=== PATIENT | male | born 1940 | race Native Hawaiian/Other Pacific Islander ===

== ENCOUNTER 2017-08-12 01:31 | Outpatient (CLI) | payer OTHER, BC ==
[~2017-08-12 01:31] MED LIST: ASPIRIN LOW STR81 MG OR; CARBTAB6 PO; COZAAR100 MG PO; EZET10TA13 OR; METO50TA63 PO; NEXIUM40 M1 PO; RANO500T PO; ROPINIROLE0.5 MG OR; TEST200I2 IM; ULTRAM ER200 MG PO; UNITH DIRECT175 MCG OR
== END 2017-08-12 01:48 | disposition short-term general hospital (02) ==
LOC: AMB 01:31
DX: R07.89 Other chest pain (principal); R53.1 Weakness
CPT/HCPCS: A0425; A0427

== ENCOUNTER 2018-01-25 16:56 | Outpatient (CLI) | payer OTHER, BC | END 2018-01-25 22:58 | disposition home or self-care (01) | LOC: LAB 16:56 | DX: L02.811 Cutaneous abscess of head [any part, except face] (principal) | CPT/HCPCS: 87070; 87077; 87186; 87205 ==

== ENCOUNTER 2018-01-27 16:07 | Outpatient (CLI) | payer OTHER, BC | END 2018-01-27 16:28 | disposition short-term general hospital (02) | LOC: AMB 16:07 | DX: R55 Syncope and collapse (principal) | CPT/HCPCS: A0425; A0427 ==

== ENCOUNTER 2018-02-15 08:10 | Outpatient (CLI) | payer OTHER, BC | END 2018-02-15 19:58 | disposition home or self-care (01) | LOC: NM 08:10 | DX: S93.621A Sprain of tarsometatarsal ligament of right foot, initial encounter (principal); E13.621 Other specified diabetes mellitus with foot ulcer | CPT/HCPCS: A9561 ==

== ENCOUNTER 2018-03-06 05:29 | Outpatient (CLI) | payer OTHER, BC | END 2018-03-06 05:48 | disposition short-term general hospital (02) | LOC: AMB 05:29 | DX: R41.82 Altered mental status, unspecified (principal); R10.84 Generalized abdominal pain; R11.0 Nausea | CPT/HCPCS: A0425; A0427 ==

== ENCOUNTER 2018-05-23 11:25 | Outpatient (CLI) | payer OTHER, BC ==
[2018-05-23 12:39] LABS: POTASSIUM 4.1 mmol/L (3.6-5.2)
== END 2018-05-23 20:31 | disposition home or self-care (01) ==
LOC: LABW 11:25
PROVIDERS: Orthopaedic Surgery
DX: M86.671 Other chronic osteomyelitis, right ankle and foot (principal)
CPT/HCPCS: 36415; 80048

== ENCOUNTER 2018-11-09 14:30 | Outpatient (CLI) | payer OTHER, BC | END 2018-11-09 22:15 | disposition home or self-care (01) | LOC: CT 14:30 | DX: M54.16 Radiculopathy, lumbar region (principal); M96.1 Postlaminectomy syndrome, not elsewhere classified; M54.5 Low back pain; M48.061 Spinal stenosis, lumbar region without neurogenic claudication ==

== ENCOUNTER 2019-03-28 07:51 | Day surgery (SDC) | payer OTHER, BC ==
[2019-03-28 08:39] LABS: PLATELET COUNT 217 K/uL (142-355)
[2019-03-28 08:51] LABS: POTASSIUM 4.2 mmol/L (3.6-5.2)
== END 2019-03-28 14:10 | disposition home or self-care (01) ==
LOC: OR 07:51
PROVIDERS: Student in an Organized Health Care Education/Training Program
PROC: 0JH63XZ Insertion of Tunneled Vascular Access Device into Chest Subcutaneous Tissue and Fascia, Percutaneous Approach (ICD-10-PCS; principal; 2019-03-28)
DX: I87.8 Other specified disorders of veins (principal); C76.2 Malignant neoplasm of abdomen; C79.89 Secondary malignant neoplasm of other specified sites
CPT/HCPCS: 80053; 85027; C1788; J0690; J1644; J2001; J2704; J3010; J3490

== ENCOUNTER 2019-07-24 22:03 | Outpatient (CLI) | payer OTHER, BC ==
[~2019-07-24 22:03] MED LIST changes: -EZET10TA13 OR; +EZET10TA13 PO; -UNITH DIRECT175 MCG OR; +UNITH DIRECT175 MCG PO
[2019-07-25] MEDS ORDERED: GABA300C2 PO ×3 (09:49→12:06)
[2019-07-25] MEDS ORDERED: SINEMET PO ×3 (11:56→12:03)
[2019-07-25] MEDS ORDERED: LEXAPRO10 MG PO (11:58)
[2019-07-25] MEDS ORDERED: MULT VITAMI1 PO (11:59)
[2019-07-25] MEDS ORDERED: NATURAL ZINC50 MG PO (12:04)
[2019-07-25] MEDS ORDERED: VITAMIN D35000 UNI1 PO (12:07)
[2019-07-25] MEDS ORDERED: TERAZOSIN2 MG PO (12:11)
[2019-07-25] MEDS ORDERED: ULTRACET1 TAB PO (12:14)
[2019-07-25] MEDS ORDERED: COLACE CLEAR50 MG PO (12:17)
[2019-07-25] MEDS ORDERED: PROMETHAZINE12.5 M3 PO (15:02)
[2019-07-25] MEDS ORDERED: METOCLOPRAM10 MG PO (15:03)
[2019-07-25] MEDS ORDERED: ZOFRAN8 MG PO (15:05)
[2019-07-25] MEDS ORDERED: HYDR10TA47A PO (20:20)
[2019-07-25] MEDS ORDERED: MIRALAX3350 N1 PO (20:20)
[2019-07-25] MEDS ORDERED: FIORICET PO (20:21)
[2019-07-25] MEDS ORDERED: COMPAZINE PO (20:34)
== END 2019-07-24 22:10 | disposition short-term general hospital (02) ==
LOC: AMB 22:03
DX: R10.84 Generalized abdominal pain (principal); Z85.028 Personal history of other malignant neoplasm of stomach
CPT/HCPCS: A0425; A0429

== ENCOUNTER 2019-07-24 22:14 | Observation (INO) | payer OTHER, BC ==
[~2019-07-24] VITALS: Ht 180.3 cm; Wt 77.6 kg
[2019-07-24 22:34] VITALS: BP 143/54; TEMP 98.7
[2019-07-24 23:02] LABS: PLATELET COUNT 179 K/uL (142-355)
[2019-07-24 23:42] LABS: POTASSIUM 4.8 mmol/L (3.6-5.2); SODIUM 138 mmol/L (136-145)
[2019-07-24 23:45] VITALS: BP 170/79
[2019-07-25 01:56] VITALS: BP 184/89; TEMP 97.5; Ht 180.3 cm; Wt 77.6 kg
[2019-07-25 04:00] VITALS: BP 184/89; TEMP 97.5
[2019-07-25 08:00] VITALS: BP 168/84; TEMP 97.8
[2019-07-25] MEDS ORDERED: GABA300C2 PO ×3 (09:49→12:06)
[2019-07-25] MEDS ORDERED: SINEMET PO ×3 (11:56→12:03)
[2019-07-25] MEDS ORDERED: LEXAPRO10 MG PO (11:58)
[2019-07-25] MEDS ORDERED: MULT VITAMI1 PO (11:59)
[2019-07-25 12:00] VITALS: BP 138/76; TEMP 98.7
[2019-07-25] MEDS ORDERED: NATURAL ZINC50 MG PO (12:04)
[2019-07-25] MEDS ORDERED: VITAMIN D35000 UNI1 PO (12:07)
[2019-07-25] MEDS ORDERED: TERAZOSIN2 MG PO (12:11)
[2019-07-25] MEDS ORDERED: ULTRACET1 TAB PO (12:14)
[2019-07-25] MEDS ORDERED: COLACE CLEAR50 MG PO (12:17)
[2019-07-25] MEDS ORDERED: PROMETHAZINE12.5 M3 PO (15:02)
[2019-07-25] MEDS ORDERED: METOCLOPRAM10 MG PO (15:03)
[2019-07-25] MEDS ORDERED: ZOFRAN8 MG PO (15:05)
[2019-07-25 16:00] VITALS: BP 154/82; TEMP 97.6
[2019-07-25 20:00] VITALS: BP 158/77; TEMP 98.3
[2019-07-25] MEDS ORDERED: HYDR10TA47A PO (20:20)
[2019-07-25] MEDS ORDERED: MIRALAX3350 N1 PO (20:20)
[2019-07-25] MEDS ORDERED: FIORICET PO (20:21)
[2019-07-25] MEDS ORDERED: COMPAZINE PO (20:34)
[2019-07-26] VITALS: BP 152/70; TEMP 98.6
[2019-07-26 04:00] VITALS: BP 140/64; TEMP 98.3
[2019-07-26 05:47] LABS: POTASSIUM 4.5 mmol/L (3.6-5.2)
[2019-07-26 08:00] VITALS: BP 166/86; TEMP 98.1
== END 2019-07-26 09:25 | disposition home or self-care (01) ==
LOC: ED 22:14 → MED/SURG 07-25 00:35
PROVIDERS: Emergency Medicine; ADMIT Internal Medicine
DX: K59.09 Other constipation (principal); E03.8 Other specified hypothyroidism; I10 Essential (primary) hypertension; K21.9 Gastro-esophageal reflux disease without esophagitis; G20 Parkinson's disease; F32.89 Other specified depressive episodes; C18.9 Malignant neoplasm of colon, unspecified; C78.6 Secondary malignant neoplasm of retroperitoneum and peritoneum
CPT/HCPCS: 80048; 80053; 81000; 82150; 83690; 84484; 85027; 96360; 96361; 96365; 96366; 96375; 99220; 99284; G0378; J1885; J2405

== ENCOUNTER 2019-12-08 11:40 | Inpatient (IN) | payer OTHER, BC ==
[~2019-12-08 11:40] MED LIST changes: +COLACE CLEAR50 MG PO; +COMPAZINE PO; +FIORICET PO; +GABA300C2 PO; +HYDR10TA47A PO; +LEXAPRO10 MG PO; +METOCLOPRAM10 MG PO; +MIRALAX3350 N1 PO; +MULT VITAMI1 PO; +NATURAL ZINC50 MG PO; +PROMETHAZINE12.5 M3 PO; +SINEMET PO; +TERAZOSIN2 MG PO; +ULTRACET1 TAB PO; +VITAMIN D35000 UNI1 PO; +ZOFRAN8 MG PO
== END 2019-12-31 14:12 | disposition still patient (30) ==
LOC: PAVC 11:40
PROVIDERS: ADMIT Internal Medicine
DX: G23.1 Progressive supranuclear ophthalmoplegia [Steele-Richardson-Olszewski] (principal); G20 Parkinson's disease; M25.551 Pain in right hip; M62.81 Muscle weakness (generalized); R27.8 Other lack of coordination; I25.10 Atherosclerotic heart disease of native coronary artery without angina pectoris; C25.9 Malignant neoplasm of pancreas, unspecified; G63 Polyneuropathy in diseases classified elsewhere; Z74.1 Need for assistance with personal care; R26.2 Difficulty in walking, not elsewhere classified

== ENCOUNTER 2019-12-31 14:45 | Inpatient (IN) | payer OTHER, BC | END 2020-01-10 13:45 | disposition home or self-care (01) | LOC: PAVC 14:45 | PROVIDERS: ADMIT Internal Medicine | DX: G23.1 Progressive supranuclear ophthalmoplegia [Steele-Richardson-Olszewski] (principal); G20 Parkinson's disease; M25.551 Pain in right hip; M62.81 Muscle weakness (generalized); R27.8 Other lack of coordination; I25.10 Atherosclerotic heart disease of native coronary artery without angina pectoris; C25.9 Malignant neoplasm of pancreas, unspecified; G63 Polyneuropathy in diseases classified elsewhere; Z74.1 Need for assistance with personal care; R26.2 Difficulty in walking, not elsewhere classified ==

== ENCOUNTER 2020-01-12 13:02 | Inpatient (IN) | payer OTHER, BC ==
[~2020-01-12] VITALS: Ht 180.3 cm; Wt 101.7 kg
[2020-01-12 13:06] VITALS: BP 135/63; TEMP 97.9
[2020-01-12 13:34] LABS: PLATELET COUNT 94 K/uL (142-355)
[2020-01-12 22:25] VITALS: BP 137/64; TEMP 98.4; Ht 180.3 cm; Wt 101.7 kg
[2020-01-12 23:38] VITALS: BP 121/51; TEMP 98.2
[2020-01-13] MEDS ORDERED: SINEMET1 TA2 PO (03:57)
[2020-01-13] MEDS ORDERED: TAMSULOSIN0.4 MG PO (04:01)
[2020-01-13 04:06] VITALS: BP 139/64; TEMP 98.1
[2020-01-13 05:14] LABS: POTASSIUM 4.3 mmol/L (3.6-5.2)
[2020-01-13 05:31] LABS: PLATELET COUNT 85 K/uL (142-355)
[2020-01-13 08:00] VITALS: BP 135/67; TEMP 97.6
[2020-01-13] MEDS ORDERED: MIRALAX3350 NF PO (11:47)
[2020-01-13 12:00] VITALS: BP 144/88; TEMP 98.8
[2020-01-13 16:00] VITALS: BP 144/68; TEMP 98
[2020-01-13 20:00] VITALS: BP 118/64; TEMP 99.4
[2020-01-14] VITALS (7 sets, daily range): BP systolic 140–183; BP diastolic 60–91; TEMP 98.8–100.1
[2020-01-14 05:34] LABS: POTASSIUM 3.9 mmol/L (3.6-5.2)
[2020-01-14 05:36] LABS: PLATELET COUNT 76 K/uL (142-355)
[2020-01-15 03:51] VITALS: BP 153/59; TEMP 100.3
[2020-01-15 08:00] VITALS: BP 161/65; TEMP 99.8
== END 2020-01-15 14:00 | DRG 641 ==
LOC: ED 13:02 → MED/SURG 20:15
PROVIDERS: Family Medicine; Internal Medicine; ADMIT Internal Medicine
DX: E86.0 Dehydration (principal); C48.1 Malignant neoplasm of specified parts of peritoneum; D69.6 Thrombocytopenia, unspecified; I25.10 Atherosclerotic heart disease of native coronary artery without angina pectoris; I10 Essential (primary) hypertension; E03.8 Other specified hypothyroidism; N40.0 Benign prostatic hyperplasia without lower urinary tract symptoms; G20 Parkinson's disease; G62.89 Other specified polyneuropathies; R62.7 Adult failure to thrive; R41.82 Altered mental status, unspecified
CPT/HCPCS: 80053; 81000; 85027; 87040; 87502; 96360; 96361; 96375; 99284; J1885

== ENCOUNTER 2020-01-15 14:26 | Inpatient (IN) | payer OTHER, BC ==
[~2020-01-15 14:26] MED LIST changes: +MIRALAX3350 NF PO; +SINEMET1 TA2 PO; +TAMSULOSIN0.4 MG PO
== END 2020-01-31 11:44 | disposition still patient (30) ==
LOC: PAVC 14:26
PROVIDERS: ADMIT Internal Medicine
DX: G20 Parkinson's disease (principal); R62.7 Adult failure to thrive; R27.9 Unspecified lack of coordination; M62.81 Muscle weakness (generalized); R48.8 Other symbolic dysfunctions; G23.1 Progressive supranuclear ophthalmoplegia [Steele-Richardson-Olszewski]; C25.9 Malignant neoplasm of pancreas, unspecified; G63 Polyneuropathy in diseases classified elsewhere; Z74.1 Need for assistance with personal care; R26.2 Difficulty in walking, not elsewhere classified
CPT/HCPCS: 36415; 80053; 80061; 82306; 83605; 84153; 84443; 85027; 87040; 87081

== ENCOUNTER 2020-01-16 09:32 | Outpatient (CLI) | payer OTHER, BC ==
[2020-01-16 04:03] LABS: PLATELET COUNT 98 K/uL (142-355)
[2020-01-16 04:40] LABS: POTASSIUM 3.9 mmol/L (3.6-5.2)
[2020-01-16 11:45] LABS: PLATELET COUNT 98 K/uL (142-355)
[2020-01-16 11:52] LABS: POTASSIUM 4.1 mmol/L (3.6-5.2)
== END 2020-01-16 19:39 | disposition home or self-care (01) ==
LOC: RAD 09:32
PROVIDERS: Internal Medicine
DX: R53.83 Other fatigue (principal); R50.9 Fever, unspecified; Z79.899 Other long term (current) drug therapy
CPT/HCPCS: 36415; 80053; 80061; 82306; 83605; 84153; 84443; 85027; 87040; 87081

== ENCOUNTER 2020-02-20 18:06 | Inpatient (IN) | payer OTHER, BC ==
[~2020-02-20] VITALS: Ht 182.9 cm; Wt 91.2 kg
[2020-02-20 18:31] VITALS: BP 158/93; TEMP 97.5
[2020-02-20 18:37] LABS: PLATELET COUNT 113 K/uL (142-355)
[2020-02-20 18:45] LABS: POTASSIUM 4.2 mmol/L (3.6-5.2)
[2020-02-20 22:17] VITALS: BP 143/82; TEMP 96.5; Ht 182.9 cm; Wt 91.2 kg
[2020-02-20] MEDS ORDERED: ASA LOW DOSE81 MG PO (23:06)
[2020-02-20] MEDS ORDERED: MYRBETRIQ50 MG PO (23:12)
[2020-02-20] MEDS ORDERED: NEXIUM40 MG PO (23:13)
[2020-02-20] MEDS ORDERED: TERAZOSIN2 MG PO (23:15)
[2020-02-20] MEDS ORDERED: METO50TA63 PO (23:16)
[2020-02-20] MEDS ORDERED: EZET10TA13 PO (23:17)
[2020-02-20] MEDS ORDERED: TAMS0.4C PO (23:18)
[2020-02-20] MEDS ORDERED: NATURAL ZINC50 MG PO (23:18)
[2020-02-20] MEDS ORDERED: GABA300C2 PO (23:20)
[2020-02-20] MEDS ORDERED: SINEMET1 TA3 PO (23:21)
[2020-02-20] MEDS ORDERED: PRED10TA27 PO (23:22)
[2020-02-20] MEDS ORDERED: ACET-655 PO (23:23)
[2020-02-20] MEDS ORDERED: HYDRALAZINE25 MG PO (23:25)
[2020-02-20] MEDS ORDERED: MILK OF MAGNESI1 SUS PO (23:26)
[2020-02-20] MEDS ORDERED: OXYCODONE HYDRO10 M1 PO (23:27)
[2020-02-20] MEDS ORDERED: TRAMADOL HYDROC50 MG PO (23:28)
[2020-02-20] MEDS ORDERED: PROM25TA52 PO (23:28)
[2020-02-20] MEDS ORDERED: TYLENOL325 MG PO (23:29)
[2020-02-20] MEDS ORDERED: ZOFRAN8 MG PO (23:30)
[2020-02-21] VITALS: BP 138/78; TEMP 97.6
[2020-02-21 04:00] VITALS: BP 124/69; TEMP 97.8
[2020-02-21 08:00] VITALS: BP 160/92; TEMP 98.5
[2020-02-21 12:00] VITALS: BP 155/82; TEMP 98.8
[2020-02-21 13:50] LABS: PLATELET COUNT 132 K/uL (142-355)
[2020-02-21 13:55] LABS: POTASSIUM 4.4 mmol/L (3.6-5.2)
[2020-02-21 16:00] VITALS: BP 157/75; TEMP 98.1
[2020-02-21 20:00] VITALS: BP 170/70; TEMP 99.4
[2020-02-22] VITALS (16 sets, daily range): BP systolic 101–161; BP diastolic 57–76; TEMP 96.9–100.9
[2020-02-22 05:40] LABS: PLATELET COUNT 81 K/uL (142-355)
[2020-02-22 05:50] LABS: POTASSIUM 3.8 mmol/L (3.6-5.2)
[2020-02-23] VITALS (15 sets, daily range): BP systolic 107–218; BP diastolic 59–111; TEMP 96.9–98.5
[2020-02-23 09:35] LABS: POTASSIUM 3.7 mmol/L (3.6-5.2)
[2020-02-23 09:53] LABS: PLATELET COUNT 95 K/uL (142-355)
== END 2020-02-24 12:10 | disposition expired | DRG 177 ==
LOC: ED 18:06 → MED/SURG 20:15 → PCU 20:15 → ED 20:15 → ICU 20:15 → PCU 21:37 → MED/SURG 02-23 15:50
PROVIDERS: Family Medicine; ADMIT Internal Medicine Endocrinology, Diabetes & Metabolism
DX: U07.1 COVID-19 (principal); J96.01 Acute respiratory failure with hypoxia; E87.1 Hypo-osmolality and hyponatremia; N17.9 Acute kidney failure, unspecified; G20 Parkinson's disease; D69.6 Thrombocytopenia, unspecified; K21.9 Gastro-esophageal reflux disease without esophagitis; E78.49 Other hyperlipidemia; F32.89 Other specified depressive episodes; I25.10 Atherosclerotic heart disease of native coronary artery without angina pectoris; E03.8 Other specified hypothyroidism
CPT/HCPCS: 36415; 80048; 80053; 81000; 82805; 85027; 87088; 87502; 87651; 94760; 99283; 99284; J0132; J0360; J0696; J1650; J1885; J2060; J2270; J3490